=== PATIENT | female | born 1995 | race Caucasian/White ===

== ENCOUNTER 2017-04-02 18:02 | Emergency (ER) | payer BC ==
[~2017-04-02] VITALS: Wt 54.0 kg
[~2017-04-02 18:02] MED LIST: MULT1TAB59
[2017-04-02] MEDS ORDERED: ACETAMINOPHEN 325 MG TAB PO STA (18:54)
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
[2017-04-02 19:37] LABS: ADD SCAN DIFF NO
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
[2017-04-02 19:41] LABS: BASOPHILS % 0.4 % (0.0-2.0); EOSINOPHILS # 0.1 10^3/ul (0.0-0.5); EOSINOPHILS % 1.5 % (0.0-7.0); HEMATOCRIT 31.7 % (37.0-47.0); HEMOGLOBIN 11.3 g/dl (12.0-16.0); LYMPHOCYTES # 1.6 10^3/ul (0.8-2.9); LYMPHOCYTES % 21.4 % (18.0-55.0); MEAN CORPUSCULAR HEMOGLOBIN 30.4 pg (29.0-33.0); MEAN CORPUSCULAR HGB CONC 35.6 g/dl (32.0-37.0); MEAN CORPUSCULAR VOLUME 85.2 fl (72.0-104.0); MEAN PLATELET VOLUME 9.1 fl (7.4-10.4); MONOCYTE # 0.3 10^3/ul (0.3-0.9); MONOCYTES % 3.5 % (0.0-13.0); NEUTROPHIL # 5.4 10^3/ul (1.6-7.5); NEUTROPHILS % 72.8 % (30.0-74.0); PLATELET COUNT 238 10^3/UL (140-415); RED BLOOD COUNT 3.72 10^6/ul (4.20-5.40); RED CELL DISTRIBUTION WIDTH 12.9 % (11.5-14.5); WHITE BLOOD COUNT 7.4 10^3/ul (4.8-10.8)
[2017-04-02 20:07] LABS: ADD UMIC YES; UR ASCORBIC ACID 40 mg/dL (NEGATIVE); UR BACTERIA FEW /HPF (NONE SEEN); UR BILIRUBIN (Dip) NEGATIVE (NEGATIVE); UR BLOOD (Dip) NEGATIVE (NEGATIVE); UR CLARITY SLIGHTLY CLOUDY (CLEAR); UR COLOR YELLOW (YELLOW); UR GLUCOSE (Dip) NEGATIVE (NEGATIVE); UR KETONES (Dip) NEGATIVE (NEGATIVE); UR LEUKOCYTE ESTERASE (Dip) 3+ Leu/ul (NEGATIVE); UR MUCUS FEW /HPF (NONE SEEN); UR NITRITE (Dip) NEGATIVE (NEGATIVE); UR RBC 1 /HPF (0-5); UR SPECIFIC GRAVITY (Dip) 1.019 (1.003-1.030); UR SQUAMOUS EPITHELIAL CELL FEW /HPF (FEW); UR TOTAL PROTEIN (Dip) NEGATIVE (NEGATIVE); UR UROBILINOGEN (Dip) NEGATIVE (NEGATIVE)
[2017-04-02] MEDS ORDERED: ACET500C5 PO (20:41)
[2017-04-02] MEDS ORDERED: CEPH-443 PO (20:41)
[2017-04-02 20:56] VITALS: BP 103/57; PULSE 84; RESP 16
== END 2017-04-02 20:57 | disposition home or self-care (01) ==
LOC: FTE 18:02
DX: O9A.211 Injury, poisoning and certain other consequences of external causes complicating pregnancy, first trimester (principal); S30.1XXA Contusion of abdominal wall, initial encounter; O23.11 Infections of bladder in pregnancy, first trimester; R10.2 Pelvic and perineal pain; V49.50XA Passenger injured in collision with unspecified motor vehicles in traffic accident, initial encounter; Z3A.13 13 weeks gestation of pregnancy
CPT/HCPCS: 76801; 81001; 84702; 85025; 86900; 86901; Z7610; 36415